=== PATIENT | female | born 1990 | race Caucasian/White ===

== ENCOUNTER 2020-12-23 10:01 | Emergency (ER) | payer OTHER ==
[~2020-12-23 10:01] MED LIST: COLACE 100MG C100 MG PO; IBUPROFEN600 MG PO; KEFLEX CAP 500500 MG PO; LODINE CAP 300300 MG PO; OMEPRAZOLE20 MG PO; PRENATAL VITAM1 EAC8 PO; TRANDATE 200 M200 MG PO
[2020-12-23 10:51] LABS: HEMOGLOBIN 14.1 gm/dl (12.3-15.3); RED BLOOD COUNT 5.38 M/UL (4.00-5.10); WHITE BLOOD COUNT 10.2 K/UL (4.5-11.0)
[2020-12-23 11:20] LABS: BUN/CREATININE RATIO 17 (0-10)
[2020-12-23] MEDS ORDERED: ASPIRIN CHEWABL81 MG PO (13:46)
== END 2020-12-23 15:00 | disposition home or self-care (01) ==
LOC: ER1 10:01
PROVIDERS: Emergency Medicine
DX: R07.9 Chest pain, unspecified (principal); R79.89 Other specified abnormal findings of blood chemistry; I10 Essential (primary) hypertension; Z90.49 Acquired absence of other specified parts of digestive tract
CPT/HCPCS: 71045; 80053; 82550; 82553; 83874; 84484; 84703; 85025; 85379; 93005; 99285